=== PATIENT | female | born 1955 | race Caucasian/White ===

== ENCOUNTER 2021-06-08 07:50 | Day surgery (SDC) | payer OTHER ==
[2021-06-05 15:05] VITALS: BMI 41.3
[~2021-06-08 07:50] MED LIST: ACETAMINOPHEN 325 MG TABLET (FP) PO PRN; IBUPROFEN 400 MG TABLET (FP) PO PRN
[2021-06-08] MEDS ORDERED: LIDOCAINE HCL/PF 2% SDV 5ML VIAL ONE (10:14)
[2021-06-08] MEDS ORDERED: PROPOFOL 20 ML ONE (10:15)
[2021-06-08] MEDS ORDERED: MIDAZOLAM HCL 2 MG/2 ML SINGLE DOSE VIAL ONE (10:15)
[2021-06-08] MEDS ORDERED: ceFAZolin SODIUM 1 GM VIAL ONE (10:36)
[2021-06-08] MEDS ORDERED: BUPIVACAINE HCL/EPINEPHRINE/PF 30 ML VIAL IJ ONE (10:37)
[2021-06-08 11:32] VITALS: TEMP 97.2
[2021-06-08] MEDS ORDERED: oxyCODONE HCL 5 MG TABLET PO PRN ×2 (11:37)
[2021-06-08] MEDS ORDERED: ONDANSETRON 4 MG/2 ML VIAL IVPUSH PRN (11:37)
[2021-06-08 12:13] VITALS: BP 136/73; PULSE 81
== END 2021-06-08 12:30 | disposition home or self-care (01) ==
LOC: FASU 07:50
PROVIDERS: ATTEND Orthopaedic Surgery
PROC: 0JBF0ZZ Excision of Left Upper Arm Subcutaneous Tissue and Fascia, Open Approach (ICD-10-PCS; principal; 2021-06-08 10:48)
DX: D17.22 Benign lipomatous neoplasm of skin and subcutaneous tissue of left arm (principal)
CPT/HCPCS: 82962; 88304-TC; 94760